=== PATIENT | female | born 1950 | race Caucasian/White ===

== ENCOUNTER 2019-04-20 17:10 | Inpatient (IN) | payer SELFPAY ==
[~2019-04-20] VITALS: Ht 165.1 cm; Wt 53.5 kg
--- NOTE | 2019-04-20 17:30 | NUR ---
ED Nurse Note: pt brought in by , c/c left hip pain s/p fall, pt reports she was walking and accidentally fell, denies dizziness/weakness prior to fall nor loc nor head injury. pt AA&ox4, gcs=15, skin warm and dry, resp even and unlabored on RA, -n/v/d, vss, will cont monitor. spouse member at the bedside.
--- NOTE | 2019-04-20 18:20 | NUR ---
ED Nurse Note: per ERMD order, merlos cath 16fr inserted, 10cc ns inserted, 30cc yellow urine returned. pt tolerated well, education done.
[2019-04-20 18:25] LABS: BASOPHILS % (AUTO) 1.1 % (0.0-2.0); HEMATOCRIT 35.9 % (37.0-47.0); HEMOGLOBIN 12.6 G/DL (12.0-16.0); LYMPHOCYTES % (AUTO) 21.2 % (20.0-45.0); MEAN CORPUSCULAR VOLUME 87 FL (80-99); MONOCYTES % (AUTO) 6.3 % (1.0-10.0); NEUTROPHILS % (AUTO) 63.4 % (45.0-75.0); PLATELET COUNT 157 K/UL (150-450); RED BLOOD COUNT 4.14 M/UL (4.20-5.40); RED CELL DISTRIBUTION WIDTH 10.3 % (11.6-14.8); WHITE BLOOD COUNT 5.3 K/UL (4.8-10.8)
--- NOTE | 2019-04-20 18:27 | NUR ---
ED Nurse Note: pt reports she has spasms on left hip area but refused pain medication at this time, NAYELI no notified.
[2019-04-20 18:28] LABS: ANION GAP 5 mmol/L (5-15); BLOOD UREA NITROGEN 17 mg/dL (7-18); CALCIUM 9.4 MG/DL (8.5-10.1); CARBON DIOXIDE 31 MMOL/L (21-32); CHLORIDE 105 MMOL/L (98-107); CREATININE 0.8 MG/DL (0.55-1.30); POTASSIUM 3.5 MMOL/L (3.5-5.1); SODIUM 141 MMOL/L (136-145)
[2019-04-20] MEDS ORDERED: Morphine Sulfate 4mg/ml Inj (IV USE ONLY) IVP ONE (18:30)
[2019-04-20 18:31] LABS: INR 0.9 (0.9-1.1)
[2019-04-20 18:33] VITALS: BP 93/57
[2019-04-20 18:33] LABS: ALANINE AMINOTRANSFERASE 26 U/L (12-78); ALBUMIN 3.5 G/DL (3.4-5.0); ALBUMIN/GLOBULIN RATIO 1.1 (1.0-2.7); ALKALINE PHOSPHATASE 84 U/L (46-116); ASPARTATE AMINO TRANSFERASE 25 U/L (15-37); BILIRUBIN,TOTAL 0.6 MG/DL (0.2-1.0)
--- NOTE | 2019-04-20 18:41 | NUR ---
ED Nurse Note: pt resting at this time, all safety precautions in place, extra blanket provided for comfort, pt advised to notify staff if needed assist. at the bedside.
--- NOTE | 2019-04-20 19:04 | NUR ---
HAND-OFF: Report given to RN Sushila and endorsed care, pt vss, resp even and unlabored on RA, no sx distress, iv intact and patent, merlos intact and draining. spouse member at the bedside.
--- NOTE | 2019-04-20 19:48 | Emergency Room Report ---
History of Present Illness General Chief Complaint: Lower Extremity Injury Source: Patient Present Illness HPI 69-year-old female presents ED for evaluation. Patient brought in by family stating that she had a mechanical trip and fall earlier today and landed on her left hip. States she is unable to bear weight. [place] hitting her head or LOC. Pain to left hip is throbbing, 6 out of 10, nonradiating. No other aggravating relieving factors. Denies any other associated symptoms Allergies: Coded Allergies: No Known Allergies (Unverified , 04/20/19) Patient History Past Medical History: none Past Surgical History: none Pertinent Family History: none Social History: Denies: smoking, alcohol use, drug use Now: No Immunizations: UTD Reviewed Nursing Documentation: PMH: Agreed; PSxH: Agreed Nursing Documentation-PMH Past Medical History: No Stated History Review of Systems All Other Systems: negative except mentioned in HPI Physical Exam Vital Signs Date Time Temp Pulse Resp B/P (MAP) Pulse Ox O2 Delivery O2 Flow Rate FiO2 04/20/19 17:16 97.9 63 18 92/55 (67) 99 Room Air Sp02 EP Interpretation: reviewed, normal General Appearance: no apparent distress, alert, GCS 15, non-toxic Head: normocephalic, atraumatic Eyes: bilateral eye normal inspection, bilateral eye PERRL ENT: hearing grossly normal, normal pharynx, no angioedema, normal voice Neck: full range of motion, supple/symm/no masses Respiratory: chest non-tender, lungs clear, normal breath sounds, speaking full sentences Cardiovascular #1: regular rate, rhythm, no edema Cardiovascular #2: 2+ carotid (R), 2+ carotid (L), 2+ radial (R), 2+ radial (L) , 2+ dorsalis pedis (R), 2+ dorsalis pedis (L) Gastrointestinal: normal bowel sounds, non tender, soft, non-distended, no guarding, no rebound Rectal: deferred Genitourinary: normal inspection, no CVA tenderness Musculoskeletal: back normal, gait/station normal, decreased range of motion - L hip Neurologic: alert, oriented x3, responsive, sensory intact, speech normal Psychiatric: judgement/insight normal, memory normal, mood/affect normal, no suicidal/homicidal ideation Reflexes: 3+ bicep (R), 3+ bicep (L), 3+ tricep (R), 3+ tricep (L), 3+ knee (R) , 3+ knee (L) Skin: normal color, no rash, warm/dry, well hydrated Lymphatic: no adenopathy Medical Decision Making Diagnostic Impression: Primary Impression: Femur neck fracture Qualified Codes: S72.002A - Fracture of unspecified part of neck of left femur , initial encounter for closed fracture ER Course Hospital Course 69-year-old female presents to ED with L hip pain s/p fall Differential diagnoses include: fracture, dislocation, contusion Clinical course Patient placed on stretcher. After initial history and physical I ordered xrays of L hip and pelvis. Declined pain medications initially X-rays show femoral neck/intertrochanteric fracture on the left. Findings with patient. Patient is to be admitted for operative fixation. IV pain meds but she again declined Case discussed with Dr. Kang who agreed to consult on this case. Case discussed with Dr. Padilla who agreed to accept the patient to his service for further care and support i. I feel this is a highly complex case requiring extensive working including EKG/Rhythm strip, Xray/CT/US, Blood/urine lab work, repeat exams while in ED, and administration of strong opiates/narcotics for pain control, admission to hospital or close patient follow up. Diagnosis -femur fx fracture Admitted to floor in serious condition Labs Test 04/20/19 18:00 White Blood Count 5.3 K/UL (4.8-10.8) Red Blood Count 4.14 M/UL (4.20-5.40) Hemoglobin 12.6 G/DL (12.0-16.0) Hematocrit 35.9 % (37.0-47.0) Mean Corpuscular Volume 87 FL (80-99) Mean Corpuscular Hemoglobin 30.4 PG (27.0-31.0) Mean Corpuscular Hemoglobin Concent 35.0 G/DL (32.0-36.0) Red Cell Distribution Width 10.3 % (11.6-14.8) Platelet Count 157 K/UL (150-450) Mean Platelet Volume 7.0 FL (6.5-10.1) Neutrophils (%) (Auto) 63.4 % (45.0-75.0) Lymphocytes (%) (Auto) 21.2 % (20.0-45.0) Monocytes (%) (Auto) 6.3 % (1.0-10.0) Eosinophils (%) (Auto) 8.0 % (0.0-3.0) Basophils (%) (Auto) 1.1 % (0.0-2.0) Prothrombin Time 10.0 SEC (9.30-11.50) Prothromb Time International Ratio 0.9 (0.9-1.1) Activated Partial Thromboplast Time 23 SEC (23-33) Sodium Level 141 MMOL/L (136-145) Potassium Level 3.5 MMOL/L (3.5-5.1) Chloride Level 105 MMOL/L (98-107) Carbon Dioxide Level 31 MMOL/L (21-32) Anion Gap 5 mmol/L (5-15) Blood Urea Nitrogen 17 mg/dL (7-18) Creatinine 0.8 MG/DL (0.55-1.30) Estimat Glomerular Filtration Rate > 60 mL/min (>60) Glucose Level 124 MG/DL (74-106) Calcium Level 9.4 MG/DL (8.5-10.1) Total Bilirubin 0.6 MG/DL (0.2-1.0) Aspartate Amino Transf (AST/SGOT) 25 U/L (15-37) Alanine Aminotransferase (ALT/SGPT) 26 U/L (12-78) Alkaline Phosphatase 84 U/L (46-116) Total Protein 6.8 G/DL (6.4-8.2) Albumin 3.5 G/DL (3.4-5.0) Globulin 3.3 g/dL Albumin/Globulin Ratio 1.1 (1.0-2.7) Other X-Ray Diagnostic Results Other X-Ray Diagnostic Results : X-Ray ordered: L hip + pelvis # of Views/Limited Vs Complete: 3 View Indication: Pain EP Interpretation: Yes Interpretation: no dislocation, no soft tissue swelling, other - femur neck fx Impression: Other - femur fx Electronically Signed by: Electronically signed by Nicola Huddleston MD Last Vital Signs Date Time Temp Pulse Resp B/P (MAP) Pulse Ox O2 Delivery O2 Flow Rate FiO2 04/20/19 18:34 62 18 Room Air 04/20/19 18:33 97.9 93/57 99 Status: improved Disposition: ADMITTED INPATIENT Condition: Serious Scripts No Active Prescriptions or Reported Meds Referrals: NOT CHOSEN IPA/,REFERRING (PCP) Nicola Huddleston MD Apr 20, 2019 19:48
--- NOTE | 2019-04-20 19:53 | NUR ---
ED Nurse Note: called to give report, per charge nurse statement, she will call back.
--- NOTE | 2019-04-20 20:20 | NUR ---
ED Nurse Note: report given to POOJA brown from [facility], will notify ermd regarding merlos order.
--- NOTE | 2019-04-20 20:30 | NUR ---
ED Nurse Note: pt sent to [facility] with noel payne, pt is aox4, on room air, skin intact, no signs of acute distress, some belongings have been sent home wiht , shoes, shirt, cellphone, one head piece, and glasses are bedside with pt.
--- NOTE | 2019-04-20 20:36 | NUR ---
ED Nurse Note: verified ERMD regarding merlos cath insertion order.
[2019-04-20 20:45] VITALS: BP 108/62
--- NOTE | 2019-04-20 20:45 | NUR ---
NURSE NOTES: Patient admitted from ER via [facility] for left hip fracture. Patient is aox4, at bedside. FC draining yellow urine via gravity, secured to thigh. Patient is oriented to room, unit and hospital policy, verbalized understanding. Belongings verified at bedside. Call light provided for patient. Will admit under Dr. Padilla, will contact Dr. Padilla.
[2019-04-20] MEDS ORDERED: ACIDOPHILUS1 EAC6 PO (20:53)
[2019-04-20] MEDS ORDERED: VITAMIN C500 M1 ORAL (20:53)
[2019-04-20] MEDS ORDERED: CALCIUM MAGNES1 EAC2 PO (20:53)
[2019-04-20] MEDS ORDERED: CO Q-10100 M1 PO (20:53)
[2019-04-20] MEDS ORDERED: MULTIVITAMINS1 EAC2 ORAL (20:53)
[2019-04-20] MEDS ORDERED: FISH OIL 1,2001 EAC2 PO (20:53)
[2019-04-20] MEDS ORDERED: VITAMIN E200 UNI2 PO (20:53)
[2019-04-20] MEDS ORDERED: HYDROcodone/Acetamin 5/325 tab ORAL PRN (21:45)
[2019-04-20] MEDS ORDERED: Morphine Sulfate 2mg/ml Inj(IV/IM USE ONLY) IVP PRN (21:45)
--- NOTE | 2019-04-20 21:55 | NUR ---
NURSE NOTES: Received admitting orders from Dr. Padilla. Contacted Dr. Leavitt regarding patient's plan for surgery. Per Dr. Barrow, will speak to patient tomorrow morning, and have patient NPO after breakfast for possible surgery in the afternoon tomorrow 04/21. Will carry out orders.
[2019-04-20 23:59] VITALS: BP 103/60
[2019-04-21] VITALS (12 sets, daily range): BP systolic 93–121; BP diastolic 49–66
[2019-04-21 06:39] LABS: BASOPHILS % (AUTO) 0.6 % (0.0-2.0); EOSINOPHILS % (AUTO) 0.2 % (0.0-3.0); HEMATOCRIT 34.8 % (37.0-47.0); HEMOGLOBIN 12.1 G/DL (12.0-16.0); LYMPHOCYTES % (AUTO) 15.9 % (20.0-45.0); MEAN CORPUSCULAR VOLUME 90 FL (80-99); MONOCYTES % (AUTO) 7.9 % (1.0-10.0); NEUTROPHILS % (AUTO) 75.4 % (45.0-75.0); PLATELET COUNT 165 K/UL (150-450); RED BLOOD COUNT 3.88 M/UL (4.20-5.40); RED CELL DISTRIBUTION WIDTH 10.8 % (11.6-14.8); WHITE BLOOD COUNT 5.6 K/UL (4.8-10.8)
[2019-04-21 07:01] LABS: ALANINE AMINOTRANSFERASE 25 U/L (12-78); ALBUMIN 3.4 G/DL (3.4-5.0); ALKALINE PHOSPHATASE 70 U/L (46-116); ANION GAP 7 mmol/L (5-15); ASPARTATE AMINO TRANSFERASE 23 U/L (15-37); BILIRUBIN,TOTAL 0.9 MG/DL (0.2-1.0); BLOOD UREA NITROGEN 15 mg/dL (7-18); CARBON DIOXIDE 29 MMOL/L (21-32); CHLORIDE 104 MMOL/L (98-107); CHOLESTEROL 141 MG/DL (< 200); CREATININE 0.6 MG/DL (0.55-1.30); HDL CHOLESTEROL 76 MG/DL (40-60); SODIUM 140 MMOL/L (136-145); TRIGLYCERIDES 24 MG/DL (30-150)
--- NOTE | 2019-04-21 07:20 | NUR ---
HAND-OFF: Report given to Isabel PATTON.
--- NOTE | 2019-04-21 07:27 | Consultation ---
Consult Note Consult Note Patient seen and evaluated. Left hip IT fx. Plan on ORIF this afternoon at 2:45. NPO. Consent was obtained. Full consult dictated. Krishan Barrow MD Apr 21, 2019 07:27
--- NOTE | 2019-04-21 07:30 | NUR ---
NURSE NOTES: WALKING ROUNDS DONE WITH OUTGOING RN. PATIENT AOX4. LEFT HIP SITE MILD SWELLING; JAIDEN PAIN. QUESTIONS ANSWERED NEEDS MET. DISCUSSED PLAN OF CARE FOR THE DAY. PATIENT SEEN BY DR. DE LOS SANTOS FOR SURGERY TODAY.
--- NOTE | 2019-04-21 07:40 | Pre-Procedure Note/Attestation ---
Pre-Procedure Note/Attestation Complete Prior to Procedure Planned Procedure: left Procedure Narrative: HIp Open reduction and internal fixation Indications for Procedure Pre-Operative Diagnosis: Left hip fracture Attestation I attest that I discussed the nature of the procedure; its benefits; risks and complications; and alternatives (and the risks and benefits of such alternatives ), prior to the procedure, with the patient (or the patient's legal senior human resources representative). I attest that, if there was a reasonable possibility of needing a blood transfusion, the patient (or the patient's legal senior human resources representative) was given the [facility] standardized written summary, pursuant to the [place] Blood Safety Act ([place] Health and Safety Code # 1645, as amended). I attest that I re-evaluated the patient just prior to the surgery and that there has been no change in the patient's H&P, except as documented below: Krishan Barrow MD Apr 21, 2019 07:39
[2019-04-21] MEDS ORDERED: D5NS 1,000 ML IV SCH (08:00)
--- NOTE | 2019-04-21 08:30 | Consultation ---
DATE OF CONSULTATION: 04/21/2019 ORTHOPEDIC CONSULTATION CONSULTING PHYSICIAN: Krishan Barrow M.D. REASON FOR CONSULTATION: Left-sided hip fracture. BRIEF HISTORY: The patient is a very pleasant 69-year-old female, who sustained a mechanical fall while she was walking with her son. Apparently, there was an uneven sidewalk and she tripped over that landing on her left hip. She had immediate onset of pain about the left hip. [facility] and an x-ray revealed a slight left IT fracture. Orthopedic consultation was obtained. Generally, the patient is able to walk without any assistive devices and she is very active. She lives in a home that is flat, there is no significant stairs. PAST MEDICAL HISTORY: Significant for none. PAST SURGICAL HISTORY: None. MEDICATIONS: She has not taken any. ALLERGIES: No known drug allergies. SOCIAL HISTORY: Denies smoking or alcohol use. REVIEW OF SYSTEMS: Reviewed and reconciled. There is no significant finding. PHYSICAL EXAMINATION: EXTREMITIES: Examination of the left hip reveals that the left leg is slightly externally rotated and shortened. Any motion of the left hip causes pain. There is no ulceration about the left hip. She is able to wiggle her toes. There is no abnormal finding except pain in the left hip and some swelling. DIAGNOSTIC DATA: X-ray of the left hip is reviewed. There is evidence of left hip intertrochanteric fracture. IMPRESSION: Left hip IT fracture. PLAN: We will go and proceed with left hip open reduction and internal fixation with a short gamma nail. Risks, benefits, and complications were fully discussed with her. The risks of infection, bleeding, neurovascular complication, possibility of nonunion, possibility of malunion, possibility of inability to walk without assistive device down the line was discussed with her, although our goal is to get her up and moving without any assistive devices and getting back to most of her activities. All questions were answered. We will see if we will go and try to expedite this for later this afternoon. She is NPO and stat 2D echo has been ordered. Krishan Barrow M.D. DR: /KENDRICK JOB#: [id number] CC: MARLEN
--- NOTE | 2019-04-21 08:30 | NUR ---
NURSE NOTES: PATIENT NOW NPO, SURGICAL AND BLOOD CONSENT SIGNED BY PATIENT. IVFS STARTED ORDERED. BED IN LOW AND LOCKED IN POSITION. CALL LIGHT WITHIN REACH.
[2019-04-21] MEDS ORDERED: Heparin 5000 units/ml inj SUBQ SCH (09:00)
--- NOTE | 2019-04-21 10:58 | History & Physical ---
History and Physical History & Physicial patient is seen and examined. Full Dictation completed. On 1055 AM Erin Padilla MD Apr 21, 2019 10:58
--- NOTE | 2019-04-21 10:59 | General Progress Note ---
Assessment/Plan Assessment/Plan: Full Dictation in progress A/P: 1- Left Hip Fx 2- unremarkable medical h.o Plan: EKG, Echo and CXR are ordered Remains NPO Subjective Allergies: Coded Allergies: GRAPE (Unverified Allergy, Severe, 04/20/19) Beef (Verified Allergy, Mild, intestinal upset, 04/20/19) MORGAN (Verified Allergy, Mild, intestinal upset, 04/20/19) POULTRY (Verified Allergy, Mild, intestinal upset, 04/20/19) Plums (Verified Allergy, Mild, intestinal upset, 04/20/19) Uncoded Allergies: concourd grape (Adverse Reaction, Severe, Anaphylaxis, 04/20/19) Objective Last 24 Hour Vital Signs Date Time Temp Pulse Resp B/P (MAP) Pulse Ox O2 Delivery O2 Flow Rate FiO2 04/21/19 08:00 98.4 85 17 110/60 (77) 99 04/21/19 04:00 96.8 85 18 101/56 (71) 98 04/20/19 23:59 96.6 77 18 103/60 (74) 98 04/20/19 21:00 Room Air 04/20/19 20:45 98.0 81 18 108/62 (77) 98 04/20/19 20:30 98.2 68 15 97/61 100 Room Air 04/20/19 18:34 62 18 Room Air 04/20/19 18:33 97.9 62 18 93/57 99 Room Air 04/20/19 17:16 97.9 63 18 92/55 (67) 99 Room Air Intake and Output 04/20/19 04/21/19 19:00 07:00 Intake Total 10 ml Output Total 700 ml Balance 10 ml -700 ml Intake IV Total 10 ml Output Urine Total 700 ml Laboratory Tests 04/20/19 18:00: White Blood Count 5.3, Red Blood Count 4.14L, Hemoglobin 12.6, Hematocrit 35.9L , Mean Corpuscular Volume 87, Mean Corpuscular Hemoglobin 30.4, Mean Corpuscular Hemoglobin Concent 35.0, Red Cell Distribution Width 10.3L, Platelet Count 157, Mean Platelet Volume 7.0, Neutrophils (%) (Auto) 63.4, Lymphocytes (%) (Auto) 21.2, Monocytes (%) (Auto) 6.3, Eosinophils (%) (Auto) 8.0H, Basophils (%) (Auto) 1.1, Prothrombin Time 10.0, Prothromb Time International Ratio 0.9, Activated Partial Thromboplast Time 23, Sodium Level 141, Potassium Level 3.5, Chloride Level 105, Carbon Dioxide Level 31, Anion Gap 5, Blood Urea Nitrogen 17, Creatinine 0.8, Estimat Glomerular Filtration Rate > 60, Glucose Level 124H, Calcium Level 9.4, Total Bilirubin 0.6, Aspartate Amino Transf (AST/SGOT) 25, Alanine Aminotransferase (ALT/SGPT) 26, Alkaline Phosphatase 84, Total Protein 6.8, Albumin 3.5, Globulin 3.3, Albumin/ Globulin Ratio 1.1 04/21/19 05:45: White Blood Count 5.6, Red Blood Count 3.88L, Hemoglobin 12.1, Hematocrit 34.8L , Mean Corpuscular Volume 90, Mean Corpuscular Hemoglobin 31.0, Mean Corpuscular Hemoglobin Concent 34.6, Red Cell Distribution Width 10.8L, Platelet Count 165, Mean Platelet Volume 7.4, Neutrophils (%) (Auto) 75.4H, Lymphocytes (%) (Auto) 15.9L, Monocytes (%) (Auto) 7.9, Eosinophils (%) (Auto) 0.2, Basophils (%) (Auto) 0.6, Sodium Level 140, Potassium Level 4.0, Chloride Level 104, Carbon Dioxide Level 29, Anion Gap 7, Blood Urea Nitrogen 15, Creatinine 0.6, Estimat Glomerular Filtration Rate > 60, Glucose Level 108H, Calcium Level 9.0, Total Bilirubin 0.9, Aspartate Amino Transf (AST/SGOT) 23, Alanine Aminotransferase (ALT/SGPT) 25, Alkaline Phosphatase 70, Total Protein 6.9, Albumin 3.4, Globulin 3.5, Albumin/Globulin Ratio 1.0, Hemoglobin A1c 5.4, Troponin I 0.000, Pro-B-Type Natriuretic Peptide 244H, Triglycerides Level 24L, Cholesterol Level 141, LDL Cholesterol 60, HDL Cholesterol 76H, Cholesterol/HDL Ratio 1.9L, Thyroid Stimulating Hormone (TSH) 0.454 Height (Feet): 5 Height (Inches): 5.00 Weight (Pounds): 118 Erin Padilla MD Apr 21, 2019 10:59
--- NOTE | 2019-04-21 11:19 | NUR ---
Social Work This Sw met with patient for a home safety evaluation (self pay/no insurance). This Sw met with patient who explains she plans to discharge to home with spouse, Jeronimo and son, (age 24), Jovanni to assist as needed. Patient anticipates P.T to see her here to provide training for ambulation prior to discharge. Patient explains her spouse has already purchase a walker (does not have any other needs or concerns at this time). Patient lives with spouse in a single level home (no steps). Patient provided a copy of her Advance Directive (placed in front of chart) with Spouse to assist with decision making as needed, with full code, full treatment. Patient remains alert/oriented x4 and making own decisions at this time.
--- NOTE | 2019-04-21 14:00 | NUR ---
NURSE NOTES: PATIENT READY FOR SURGERY. IDENTIFIED BY NAME. AND MR# WITH ANCILLARY WORKER AT BEDSIDE. FAMILY AT BEDSIDE. EARRINGS GIVEN TO FAMILY MEMBER AT BEDSIDE.
[2019-04-21] MEDS ORDERED: Bacitracin 50000 Units Vial ONE (14:28)
[2019-04-21] MEDS ORDERED: fentaNYL 100 mcg/2 mL IV ONE (14:37)
[2019-04-21] MEDS ORDERED: Midazolam 2mg/2ml Inj ONE (14:38)
[2019-04-21] MEDS ORDERED: Propofol 200mg/20ml IV ONE (14:41)
[2019-04-21] MEDS ORDERED: Lidocaine 1% MPF 10mg/ml 5ml ONE (14:41)
[2019-04-21] MEDS ORDERED: Bupivacaine 0.5% Inj 30 ml vial INJ ONE ×2 (14:50→14:52)
[2019-04-21] MEDS ORDERED: Duramorph PF 5mg/10ml amp ONE (14:52)
[2019-04-21] MEDS ORDERED: NS Irrig 1000ml ONE (15:00)
[2019-04-21] MEDS ORDERED: Sterile Water Irrig 1000ml IRRIG ONE (15:00)
[2019-04-21] MEDS ORDERED: LR 1000ml ONE (15:00)
[2019-04-21] MEDS ORDERED: Milk of Magnesia 30ml Ud ORAL PRN (15:30)
[2019-04-21] MEDS ORDERED: HYDROcodone/Acetamin 7.5/325 tab ORAL PRN (15:30)
[2019-04-21] MEDS ORDERED: HYDROcodone/Acetamin 5/325 tab ORAL PRN (15:30)
[2019-04-21] MEDS ORDERED: HYDROmorphone 1mg/ml Carpuject SUBQ PRN (15:30)
[2019-04-21] MEDS ORDERED: NS Irrig 1000ml IRRIG ONE (15:46)
[2019-04-21] MEDS ORDERED: LR 1000ml 1,000 ML IVLG SCH (15:52)
--- NOTE | 2019-04-21 15:52 | Anethesia Preoperative Eval ---
Anesthesia Pre-op PMH/ROS General Date of Evaluation: Apr 21, 2019 Time of Evaluation: 14:20 Anesthesiologist: Chanelle ASA Score: ASA 2 Mallampati Score Class I : Soft palate, uvula, fauces, pillars visible Class II: Soft palate, uvula, fauces visible Class III: Soft palate, base of uvula visible Class IV: Only hard plate visible Mallampati Classification: Class II Surgeon: Danial Diagnosis: L femoral Fx Surgical Procedure: ORIF of L femoral Fx Anesthesia History: none Family History: no anesthesia problems Allergies: Coded Allergies: GRAPE (Unverified Allergy, Severe, 04/20/19) Beef (Verified Allergy, Mild, intestinal upset, 04/20/19) MORGAN (Verified Allergy, Mild, intestinal upset, 04/20/19) POULTRY (Verified Allergy, Mild, intestinal upset, 04/20/19) Plums (Verified Allergy, Mild, intestinal upset, 04/20/19) Uncoded Allergies: concourd grape (Adverse Reaction, Severe, Anaphylaxis, 04/20/19) Medications: see eMAR Patient NPO?: Yes NPO Date: Apr 21, 2019 NPO Time: 0800 Past Medical History Cardiovascular: Denies: HTN, CAD, [place], valve dz, arrhythmia, other Pulmonary: Denies: asthma, COPD, KIRA, other Gastrointestinal/Genitourinary: Reports: GERD - mild; Denies: CRI, ESRD, other Neurologic/Psychiatric: Denies: dementia, CVA, depression/anxiety, TIA, other Endocrine: Reports: hypothyroidism; Denies: DM, steroids, other HEENT: Denies: cataract (L), cataract (R), glaucoma, [place] (L), [place] (R), other Hematology/Immune: Denies: anemia, DVT, bleeding disorder, other Musculoskeletal/Integumentary: Reports: OA; Denies: RA, DJD, DDD, edema, other PMH Narrative: as above PSxH Narrative: Anesthesia Pre-op Phys. Exam Physician Exam Last Vital Signs Date Time Temp Pulse Resp B/P (MAP) Pulse Ox O2 Delivery O2 Flow Rate FiO2 04/21/19 12:00 97.9 79 19 116/66 (83) 98 04/21/19 09:00 Room Air Constitutional: NAD Neurologic: CN 2-12 intact Cardiovascular: RRR, no M/R/G Respiratory: CTA Gastrointestinal: S/NT/ND Airway Exam Mallampati Score: Class II MO: full Neck: flexible ROM: limited Teeth: intact Dentures: no upper, no lower Anesthesia Pre-op A/P Labs Hematology Test 04/20/19 18:00 04/21/19 05:45 White Blood Count 5.3 K/UL (4.8-10.8) 5.6 K/UL (4.8-10.8) Red Blood Count 4.14 M/UL (4.20-5.40) L 3.88 M/UL (4.20-5.40) L Hemoglobin 12.6 G/DL (12.0-16.0) 12.1 G/DL (12.0-16.0) Hematocrit 35.9 % (37.0-47.0) L 34.8 % (37.0-47.0) L Mean Corpuscular Volume 87 FL (80-99) 90 FL (80-99) Mean Corpuscular Hemoglobin 30.4 PG (27.0-31.0) 31.0 PG (27.0-31.0) Mean Corpuscular Hemoglobin Concent 35.0 G/DL (32.0-36.0) 34.6 G/DL (32.0-36.0) Red Cell Distribution Width 10.3 % (11.6-14.8) L 10.8 % (11.6-14.8) L Platelet Count 157 K/UL (150-450) 165 K/UL (150-450) Mean Platelet Volume 7.0 FL (6.5-10.1) 7.4 FL (6.5-10.1) Neutrophils (%) (Auto) 63.4 % (45.0-75.0) 75.4 % (45.0-75.0) H Lymphocytes (%) (Auto) 21.2 % (20.0-45.0) 15.9 % (20.0-45.0) L Monocytes (%) (Auto) 6.3 % (1.0-10.0) 7.9 % (1.0-10.0) Eosinophils (%) (Auto) 8.0 % (0.0-3.0) H 0.2 % (0.0-3.0) Basophils (%) (Auto) 1.1 % (0.0-2.0) 0.6 % (0.0-2.0) Coagulation Test 04/20/19 18:00 Prothrombin Time 10.0 SEC (9.30-11.50) Prothromb Time International Ratio 0.9 (0.9-1.1) Activated Partial Thromboplast Time 23 SEC (23-33) Chemistry Test 04/20/19 18:00 04/21/19 05:45 Sodium Level 141 MMOL/L (136-145) 140 MMOL/L (136-145) Potassium Level 3.5 MMOL/L (3.5-5.1) 4.0 MMOL/L (3.5-5.1) Chloride Level 105 MMOL/L (98-107) 104 MMOL/L (98-107) Carbon Dioxide Level 31 MMOL/L (21-32) 29 MMOL/L (21-32) Anion Gap 5 mmol/L (5-15) 7 mmol/L (5-15) Blood Urea Nitrogen 17 mg/dL (7-18) 15 mg/dL (7-18) Creatinine 0.8 MG/DL (0.55-1.30) 0.6 MG/DL (0.55-1.30) Estimat Glomerular Filtration Rate > 60 mL/min (>60) > 60 mL/min (>60) Glucose Level 124 MG/DL (74-106) H 108 MG/DL (74-106) H Calcium Level 9.4 MG/DL (8.5-10.1) 9.0 MG/DL (8.5-10.1) Total Bilirubin 0.6 MG/DL (0.2-1.0) 0.9 MG/DL (0.2-1.0) Aspartate Amino Transf (AST/SGOT) 25 U/L (15-37) 23 U/L (15-37) Alanine Aminotransferase (ALT/SGPT) 26 U/L (12-78) 25 U/L (12-78) Alkaline Phosphatase 84 U/L (46-116) 70 U/L (46-116) Total Protein 6.8 G/DL (6.4-8.2) 6.9 G/DL (6.4-8.2) Albumin 3.5 G/DL (3.4-5.0) 3.4 G/DL (3.4-5.0) Globulin 3.3 g/dL 3.5 g/dL Albumin/Globulin Ratio 1.1 (1.0-2.7) 1.0 (1.0-2.7) Hemoglobin A1c 5.4 % (4.3-6.0) Troponin I 0.000 ng/mL (0.000-0.056) Pro-B-Type Natriuretic Peptide 244 pg/mL (0-125) H Triglycerides Level 24 MG/DL (30-150) L Cholesterol Level 141 MG/DL (< 200) LDL Cholesterol 60 mg/dL (<100) HDL Cholesterol 76 MG/DL (40-60) H Cholesterol/HDL Ratio 1.9 (3.3-4.4) L Thyroid Stimulating Hormone (TSH) 0.454 uiU/mL (0.358-3.740) Studies Pre-op Studies: EKG - NSR Risk Assessment & Plan Assessment: ASA 2 Plan: SAB vs GA Status Change Before Surgery: No Pre-Antibiotics Drug: Ancef 1gr. Given Within 1 Hr of Incision: Yes Time Given: 15:20 Tenzin Roca MD Apr 21, 2019 15:52
[2019-04-21] MEDS ORDERED: DiphenhydrAMINE 50mg/ml Inj IVP PRN (16:00)
[2019-04-21] MEDS ORDERED: fentaNYL 100 mcg/2 mL IV PRN (16:00)
[2019-04-21] MEDS ORDERED: Ketorolac 30mg Inj IV PRN (16:00)
--- NOTE | 2019-04-21 16:11 | NUR ---
CASE MANAGEMENT:REVIEW 69 YR OLD FEMALE PRESENTED TO ER CC: TRIP AND FALL SI: LEFT HIP FRACTURE 97.9 63 18 92/55 99% ON RA GLUCOSE+124 IS: IV MORPHINE XRAY HIP : TO MED/SURG 3 [facility] 04/21/19 SI: LT HIP FRACTURE 97.9 79 19 116/66 98% ON RA IS: TO SURGERY FOR: LT HIP ORIF W/GAMMA NAIL IV ANCEF Q8HRS : MED/SURG STATUS 3 DCP: RETURN HOME
--- NOTE | 2019-04-21 16:13 | Brief Operative Note ---
Immediate Post Operative Note Operative Note Pre-op Diagnosis: Left hip fracture Procedure: L hip ORIF with short gamma Nail Post-op Diagnosis: same Post-op Diagnosis: same as pre-op Surgeon: nestor Video Game Engineer: Getachew Anesthesiologist: Lukas Anesthesia: general Specimen: none Complications: none Condition: stable Fluids: 800 Estimated Blood Loss: volume - 50 cc Drains: none Implant(s) used?: Yes - solomon gamma nail Krishan Barrow MD Apr 21, 2019 16:13
--- NOTE | 2019-04-21 16:15 | NUR ---
DISCHARGE PLAN ONLY DISCHARGE OPTION IS FOR PATIENT TO RETURN HOME SINCE SHE IS NON FUNDED WE ARE UNABLE TO REFER HER TO A SNF, ARU OR HOME HEALTH
--- NOTE | 2019-04-21 16:36 | Immediate Post-Op Evaluation ---
Immediate Post-Op Evalulation Immediate Post-Op Evalulation Procedure: ORIF of L femoral Fx Date of Evaluation: Apr 21, 2019 Time of Evaluation: 16:35 IV Fluids: 1000 Blood Products: none Estimated Blood Loss: 100 Urinary Output: 200 Blood Pressure Systolic: 104 Blood Pressure Diastolic: 56 Pulse Rate: 68 Respiratory Rate: 20 O2 Sat by Pulse Oximetry: 98 Temperature (Fahrenheit): 97.6 Pain Score (1-10): 2 Nausea: No Vomiting: No Complications none Patient Status: reacts, patent, none Hydration Status: adequate Tnezin Roca MD Apr 21, 2019 16:36
--- NOTE | 2019-04-21 17:00 | History and Physical Report ---
DATE OF ADMISSION: 04/20/2019 SOURCE OF INFORMATION: Patient and EMR. HISTORY OF PRESENT ILLNESS: The patient is a pleasant 69-year-old white female. She is status post mechanical fall and trauma and fracture of the left hip. The patient denies having any other medical problems. At the time of evaluation, she is denying any chest pain or shortness of breath. PAST MEDICAL HISTORY: Unremarkable. PAST SURGICAL HISTORY: Denies. MEDICATIONS: Current hospital medications including, but not limited to, multivitamin and fish oil. ALLERGIES: NKDA. FAMILY HISTORY: Reviewed and noncontributory. SOCIAL HISTORY: The patient has 1 son, is living with her . Denies history of illicit drug abuse, smoking, or alcohol abuse. REVIEW OF SYSTEMS: All 12-elements of review of systems reviewed. Pertinent and positives are reviewed as above. PHYSICAL EXAMINATION: VITAL SIGNS: Blood pressure is 90/60, temperature 98.2, and pulse ox 99 percent on room air. HEENT: Atraumatic and normocephalic. CHEST: Clear to auscultation. HEART: S1 and S2. Regular rate and rhythm. ABDOMEN: Soft. No organomegaly. MUSCULOSKELETAL: No gross focal motor deficits. Positive for decreased range of motion in the left hip secondary to the known fracture. IMAGING: The official report is pending. LABORATORY DATA: Labs dated 04/20/2019 shows WBC 5.3, hemoglobin 12.6, and platelet of 157,000. Sodium 142 and potassium 3.5. Liver function tests within normal limits. Glucose of 120. ASSESSMENT AND PLAN: 1. Mechanical fall and fracture of the left hip. 2. Abnormal blood sugar. No evidence of diabetes. 3. GI and DVT prophylaxis. PLAN OF CARE: I will order the EKG, echo, and chest x-ray. Case has already been reviewed and discussed with the surgeon, Dr. Barrow. COMMENTS: The time of this dictation does not reflect the actual time of encounter. Erin Padilla M.D. DR: KERRY JOB#: [id number] CC:
--- NOTE | 2019-04-21 17:45 | NUR ---
NURSE NOTES: PATIENT RETURNED FROM SURGERY VIA BED. AOX4. DENIES PAIN TO SURGICAL SITE. DRSG C/D/I. BEDSIDE REPORT RECEIVED. DISCUSSED PLAN OF CARE FOR THE REMAINDER OF THE SHIFT. VERBALIZED UNDERSTANDING. FAMILY AT BEDSIDE. BED IN LOW AND LOCKED POSITION. CALL LIGHT WITHIN REACH.
[2019-04-21] MEDS: Docusate 100mg cap ORAL SCH (18:00)
[2019-04-21] MEDS: Aspirin Baby 81mg ORAL SCH (18:53)
[2019-04-21] MEDS ORDERED: D5 1/2NS w/KCl 20mEq 1,000 ML IV SCH (19:00)
--- NOTE | 2019-04-21 19:26 | NUR ---
HAND-OFF: Report given to DENISE Lazo RN.
--- NOTE | 2019-04-21 19:30 | NUR ---
NURSE NOTES: Report taken from POOJA Hall. Patient is awake and in bed, very pleasant, A&Ox4. No signs of distress on room air, will assess and remove is sats are ok. No complaints of pain, spinal block is still affecting patient. She states that she is beginning to feel minor sensations but nothing through distal LE at the moment. Surigcal site c/d/i. IV c/d/i and running D51/2NS+20KCl at 75mls/hr per order. No abductor pillow necessary for MD order. Skin is intact. Bed in lowest position, call light within reach.
--- NOTE | 2019-04-21 19:59 | Cardiology Progress Note ---
Assessment/Plan Status Narrative The patient is seen and examined, full consult note will be dictated shortly. Objective Last 24 Hour Vital Signs Date Time Temp Pulse Resp B/P (MAP) Pulse Ox O2 Delivery O2 Flow Rate FiO2 04/21/19 17:45 98.0 66 12 93/61 (72) 100 04/21/19 17:30 97.9 67 17 115/52 100 Nasal Cannula 3 04/21/19 17:15 64 15 115/49 100 Nasal Cannula 3 04/21/19 17:00 66 19 110/50 100 Nasal Cannula 3 04/21/19 16:50 65 14 121/52 100 Nasal Cannula 3 04/21/19 16:42 63 14 107/53 100 Simple Mask 6 04/21/19 16:37 56 16 98/51 100 Simple Mask 6 04/21/19 16:36 68 20 98 04/21/19 16:32 97.0 72 20 104/65 100 Simple Mask 6 04/21/19 12:00 97.9 79 19 116/66 (83) 98 04/21/19 09:00 Room Air 04/21/19 08:00 98.4 85 17 110/60 (77) 99 04/21/19 04:00 96.8 85 18 101/56 (71) 98 04/20/19 23:59 96.6 77 18 103/60 (74) 98 04/20/19 21:00 Room Air 04/20/19 20:45 98.0 81 18 108/62 (77) 98 04/20/19 20:30 98.2 68 15 97/61 100 Room Air Intake and Output 04/20/19 04/21/19 19:00 07:00 Intake Total 10 ml Output Total 700 ml Balance 10 ml -700 ml Intake IV Total 10 ml Output Urine Total 700 ml Laboratory Tests Test 04/21/19 05:45 White Blood Count 5.6 K/UL (4.8-10.8) Red Blood Count 3.88 M/UL (4.20-5.40) L Hemoglobin 12.1 G/DL (12.0-16.0) Hematocrit 34.8 % (37.0-47.0) L Mean Corpuscular Volume 90 FL (80-99) Mean Corpuscular Hemoglobin 31.0 PG (27.0-31.0) Mean Corpuscular Hemoglobin Concent 34.6 G/DL (32.0-36.0) Red Cell Distribution Width 10.8 % (11.6-14.8) L Platelet Count 165 K/UL (150-450) Mean Platelet Volume 7.4 FL (6.5-10.1) Neutrophils (%) (Auto) 75.4 % (45.0-75.0) H Lymphocytes (%) (Auto) 15.9 % (20.0-45.0) L Monocytes (%) (Auto) 7.9 % (1.0-10.0) Eosinophils (%) (Auto) 0.2 % (0.0-3.0) Basophils (%) (Auto) 0.6 % (0.0-2.0) Sodium Level 140 MMOL/L (136-145) Potassium Level 4.0 MMOL/L (3.5-5.1) Chloride Level 104 MMOL/L (98-107) Carbon Dioxide Level 29 MMOL/L (21-32) Anion Gap 7 mmol/L (5-15) Blood Urea Nitrogen 15 mg/dL (7-18) Creatinine 0.6 MG/DL (0.55-1.30) Estimat Glomerular Filtration Rate > 60 mL/min (>60) Glucose Level 108 MG/DL (74-106) H Hemoglobin A1c 5.4 % (4.3-6.0) Calcium Level 9.0 MG/DL (8.5-10.1) Total Bilirubin 0.9 MG/DL (0.2-1.0) Aspartate Amino Transf (AST/SGOT) 23 U/L (15-37) Alanine Aminotransferase (ALT/SGPT) 25 U/L (12-78) Alkaline Phosphatase 70 U/L (46-116) Troponin I 0.000 ng/mL (0.000-0.056) Pro-B-Type Natriuretic Peptide 244 pg/mL (0-125) H Total Protein 6.9 G/DL (6.4-8.2) Albumin 3.4 G/DL (3.4-5.0) Globulin 3.5 g/dL Albumin/Globulin Ratio 1.0 (1.0-2.7) Triglycerides Level 24 MG/DL (30-150) L Cholesterol Level 141 MG/DL (< 200) LDL Cholesterol 60 mg/dL (<100) HDL Cholesterol 76 MG/DL (40-60) H Cholesterol/HDL Ratio 1.9 (3.3-4.4) L Thyroid Stimulating Hormone (TSH) 0.454 uiU/mL (0.358-3.740) Hima Hollis MD Apr 21, 2019 19:59
[2019-04-21] MEDS: ceFAZolin sod 2 GM in D5W 110 ML IV SCH (23:11)
[2019-04-22] VITALS: BP 97/60
--- NOTE | 2019-04-22 02:15 | Operative Note - Dictated ---
DATE OF OPERATION: 04/21/2019 PREOPERATIVE DIAGNOSIS: Left hip displaced intertrochanteric fracture. POSTOPERATIVE DIAGNOSIS: Left hip displaced intertrochanteric fracture. PROCEDURE: Left hip open reduction and internal fixation with a short 125-degree angle gamma nail with a 95 mm lag screw. SURGEON: Krishan Barrow M.D. INDUSTRIAL SOCIOLOGIST: None. ANESTHESIOLOGIST: Tenzin Roca M.D. ANESTHESIA: General LMA anesthesia. ESTIMATED BLOOD LOSS: Less than 50 mL. COMPLICATIONS: None. BRIEF HISTORY: The patient is a pleasant 69-year-old female, who sustained a mechanical fall and broke her hip. She sustained a left hip intertrochanteric fracture. She was admitted to the hospital. After full discussion of the risks and benefits of the surgery and complications associated with it including infection, bleeding, neurovascular complication, possibility of malunion, possibility of nonunion, and possibility of other complications that may arise down the line, she opted for surgical treatment as described above. OPERATIVE PROCEDURE: The patient was brought to the operating table and was placed supine. Spinal anesthesia was initially induced and subsequently general anesthesia was induced. The patient was placed on a fracture table and all pressure points were well padded. A central post was placed. The left leg was placed in traction and right leg was placed in a well-leg andres. All pressure points were well padded. The left leg was then placed in traction and internally rotated. Image intensifier was brought in and the fracture was reduced anatomically on AP and lateral. At this point, the left leg was prepped and draped in usual sterile fashion. A time-out was performed and preop antibiotics were given prior to incision. An incision was made on the proximal aspect of the hip, 2 cm proximal to the greater trochanter. The incision was taken through subcutaneous tissue and through the gluteal fascia. At this point, the greater trochanter was palpated and under image intensifier, a guidepin was placed through the greater trochanter into the metaphyseal region across the fracture site. Once this was completed, image intensifier was checked on AP and lateral and appeared to be perfect. At this point, the proximal reaming was performed to open the canal. Subsequently, the guidewire was removed and a short 125-degree gamma nail was then placed in without any complication. At this point, using a guide and after making an incision in the skin, a guidewire was placed through the lateral cortex of the femur through the nail into the neck and into the head. The placement of the screw was slightly inferiorly on AP and central on lateral. Once this was completed, measurements were made and 95 mm appeared to be the right size. Therefore, at this point, a step drill was used to drill up 95 mm and subsequently a 95 mm lag screw was placed in without any complication. This abutted the lateral cortex very well. This was about 2 to 3 mm from the subchondral bone based on images on AP and lateral. Once this was completed, the compression screw was tightened, but backed off by about half a turn to allow for compression. At this point, the guidewire was removed and the external guide arm was removed. Wounds were thoroughly irrigated. Final x-rays were obtained on AP and lateral and the fracture was reduced anatomically and the hardware was in excellent position both on AP and lateral. At this point, wounds were thoroughly irrigated using copious amount of fluid. The gluteal fascia was closed using #1 Vicryl suture. Subcutaneous tissue was closed using 2-0 Vicryl suture. Skin was closed using 3-0 Monocryl suture. Steri-Strips were applied and sterile dressing was applied. The patient was taken to recovery room in stable condition. All lap counts and instrument counts were correct. Krishan Barrow M.D. DR: SHANIKA JOB#: [id number] CC:
--- NOTE | 2019-04-22 02:45 | Consultation ---
DATE OF CONSULTATION: 04/21/2019 CARDIOLOGY CONSULTATION CONSULTING PHYSICIAN: Hima Hollis M.D. REFERRING PHYSICIAN: Erin Padilla M.D. REASON FOR CONSULTATION: Preoperative cardiac assessment for noncardiac surgery. HISTORY OF PRESENT ILLNESS: The patient is a very unfortunate 69-year-old female, with no past medical history, who is brought in by family members to the emergency department of [facility] after she sustained a mechanical trip and fall on 04/20/2019 and landed on her left hip. She was unable to bear weight. There was no head trauma or loss of consciousness prior to this event. Her pain was under control 6/10 intensity, nonradiating. At the time of arrival to this facility, the patient did not have any chest pain or shortness of breath. Her blood pressure was 92/55 mmHg and heart rate of 63. Left hip and pelvis x-ray revealed left femoral neck fracture. The patient was admitted to medical surgical unit for further evaluation and management. Cardiology consultation was made for preoperative cardiac assessment. PAST MEDICAL HISTORY: None. PAST SURGICAL HISTORY: None. MEDICATIONS: List of medications in the outpatient setting includes ascorbic acid 500 mg p.o. daily, calcium magnesium caplet 1 capsule once daily, fish oil 1200 mg 1 tablet p.o. daily, acidophilus 1 capsule p.o. daily multivitamin 1 tablet p.o. daily, CoQ10 100 mg p.o. daily, and vitamin E 200 units p.o. daily. FAMILY HISTORY: No premature coronary artery disease in the first degree relatives. SOCIAL HISTORY: Denies any tobacco, alcohol, or illicit drug use. REVIEW OF SYSTEMS: HEENT: Denies any headache, diplopia, or blurred vision. CONSTITUTIONAL: Denies any fever, chills, night sweats, or weight loss. CARDIOVASCULAR: Denies any chest pain, shortness of breath, PND, orthopnea, leg swelling, or syncope. PULMONARY: Denies any cough, hemoptysis, or wheezing. GASTROINTESTINAL: Denies any nausea, vomiting, diarrhea, constipation, abdominal pain, or GI bleed. GENITOURINARY: Denies any hematuria, dysuria, or incontinence. NEUROLOGY: Denies any motor dysfunction, sensory deficit, or altered speech. MUSCULOSKELETAL: Pain in the left hip and inability to walk. PHYSICAL EXAMINATION: VITAL SIGNS: Blood pressure at the time of arrival to the hospital was 92/55 mmHg, pulse of 63, respirations of 18, temperature 97.9 degrees Fahrenheit, and O2 saturation 99% on room air. GENERAL: A very pleasant 69-year-old female, in no apparent respiratory distress. Alert, awake, and oriented x4. HEENT: Atraumatic and normocephalic. Anicteric. Pupils are equal, round, and reactive to light and accommodation. Extraocular muscles intact. NECK: JVP less than 5 cm. No carotid bruit. Carotid upstroke is 2+ bilaterally. CARDIOVASCULAR: Normal S1, S2. Regular rate and rhythm. No murmurs, gallops, or rubs. PMI is at fourth intercostal space at the midclavicular line. LUNGS: Clear to auscultation bilaterally. ABDOMEN: Soft, nontender, and nondistended. No hepatosplenomegaly. Positive bowel sounds. EXTREMITIES: Decreased range of motion of left hip. Abnormal gait. No edema, clubbing, or cyanosis. LABORATORY FINDINGS: WBC was 5.3, hemoglobin of 12.6, hematocrit of 35.9%, and platelet count is 157,000. INR was 0.9. Sodium was 141, potassium is 3.5, chloride 105, bicarbonate 31, BUN of 17, creatinine of 0.8, and glucose is 124. Calcium is 9.4 and albumin of 3.5. ASSESSMENT AND PLAN: The patient is a very unfortunate 69-year-old female, who is seen in Cardiology consultation. Prior to this event, the patient was capable of tolerating activities with with no limitations. She does not have any history of coronary artery disease, congestive heart failure, or cardiac arrhythmias. She is cleared for left hip open reduction and internal fixation with a risk of coronary artery events perioperatively estimated to be less than 1%. We will obtain 12-lead electrocardiogram in the postoperative period. I would like to thank, Dr. Padilla, for allowing me to participate in the care of this patient. Hima Hollis M.D. DR: CRISTÓBAL JOB#: [id number] CC:
[2019-04-22 04:00] VITALS: BP 101/56
[2019-04-22] MEDS: ceFAZolin sod 2 GM in D5W 110 ML IV SCH (06:39)
[2019-04-22 06:52] LABS: ANION GAP 5 mmol/L (5-15); BLOOD UREA NITROGEN 9 mg/dL (7-18); CALCIUM 8.5 MG/DL (8.5-10.1); CARBON DIOXIDE 29 MMOL/L (21-32); CHLORIDE 103 MMOL/L (98-107); CREATININE 0.7 MG/DL (0.55-1.30); SODIUM 137 MMOL/L (136-145)
--- NOTE | 2019-04-22 07:22 | NUR ---
HAND-OFF: Report given to POOJA Hlal and POOJA Aguillon. Patient is awake and alert, VS stable.
--- NOTE | 2019-04-22 07:30 | NUR ---
NURSE NOTES: WALKING ROUNDS DONE WITH OUTGOING RN. PATIENT AWAKE AND ALERT. LEFT HIP SURGICAL SITE ASSESSED; C/D/I. DENIES PAIN.QUESTIONS ANSWERED; NEEDS MET. DISCUSSED PLAN OF CARE FOR THE DAY. VERBALIZED UNDERSTANDING.BED IN LOW AND LOCKED POSITION.
[2019-04-22 08:00] VITALS: BP 113/60
--- NOTE | 2019-04-22 08:05 | Orthopedic Progress Note ---
Orthopedic - Progress Note Subjective Symptoms: improved Objective Laboratory Tests Test 04/22/19 05:35 Sodium Level 137 MMOL/L (136-145) Potassium Level 4.0 MMOL/L (3.5-5.1) Chloride Level 103 MMOL/L (98-107) Carbon Dioxide Level 29 MMOL/L (21-32) Anion Gap 5 mmol/L (5-15) Blood Urea Nitrogen 9 mg/dL (7-18) Creatinine 0.7 MG/DL (0.55-1.30) Estimat Glomerular Filtration Rate > 60 mL/min (>60) Glucose Level 136 MG/DL (74-106) H Calcium Level 8.5 MG/DL (8.5-10.1) Last 24 Hour Vital Signs Date Time Temp Pulse Resp B/P (MAP) Pulse Ox O2 Delivery O2 Flow Rate FiO2 04/22/19 04:00 98.4 71 15 101/56 (71) 96 04/22/19 00:00 98.5 70 15 97/60 (72) 97 04/21/19 21:00 Room Air 04/21/19 20:00 97.9 67 14 103/61 (75) 99 04/21/19 17:45 98.0 66 12 93/61 (72) 100 04/21/19 17:30 97.9 67 17 115/52 100 Nasal Cannula 3 04/21/19 17:15 64 15 115/49 100 Nasal Cannula 3 04/21/19 17:00 66 19 110/50 100 Nasal Cannula 3 04/21/19 16:50 65 14 121/52 100 Nasal Cannula 3 04/21/19 16:42 63 14 107/53 100 Simple Mask 6 04/21/19 16:37 56 16 98/51 100 Simple Mask 6 04/21/19 16:36 68 20 98 04/21/19 16:32 97.0 72 20 104/65 100 Simple Mask 6 04/21/19 12:00 97.9 79 19 116/66 (83) 98 04/21/19 09:00 Room Air Intake and Output 04/21/19 04/22/19 19:00 07:00 Intake Total 1500 ml 550 ml Output Total 1000 ml 700 ml Balance 500 ml -150 ml Intake Oral 550 ml IV Total 1500 ml Output Urine Total 900 ml 700 ml Estimated Blood Loss 100 ml Laboratory Tests Test 04/22/19 05:35 Sodium Level 137 MMOL/L (136-145) Potassium Level 4.0 MMOL/L (3.5-5.1) Chloride Level 103 MMOL/L (98-107) Carbon Dioxide Level 29 MMOL/L (21-32) Anion Gap 5 mmol/L (5-15) Blood Urea Nitrogen 9 mg/dL (7-18) Creatinine 0.7 MG/DL (0.55-1.30) Estimat Glomerular Filtration Rate > 60 mL/min (>60) Glucose Level 136 MG/DL (74-106) H Calcium Level 8.5 MG/DL (8.5-10.1) Wound: clean, dry, intact Drains: none Neuro Status: normal Vascular Status: normal Additional Comments Xray pelvis: fracture reduced and gamma nail in excellent position Assessment Post-op Diagnosis POD 1 Procedure Performed left hip ORIF Plan Plan: PT, discharge to home - d/c in AM. dressing change prior to d/c. f/u Dr Barrow next week Carie Grover Apr 22, 2019 08:05
[2019-04-22 08:34] LABS: BASOPHILS % (AUTO) 0.6 % (0.0-2.0); EOSINOPHILS % (AUTO) 2.7 % (0.0-3.0); HEMATOCRIT 31.9 % (37.0-47.0); HEMOGLOBIN 10.9 G/DL (12.0-16.0); LYMPHOCYTES % (AUTO) 17.6 % (20.0-45.0); MEAN CORPUSCULAR VOLUME 90 FL (80-99); MONOCYTES % (AUTO) 8.8 % (1.0-10.0); NEUTROPHILS % (AUTO) 70.3 % (45.0-75.0); PLATELET COUNT 141 K/UL (150-450); RED BLOOD COUNT 3.53 M/UL (4.20-5.40); RED CELL DISTRIBUTION WIDTH 10.9 % (11.6-14.8); WHITE BLOOD COUNT 5.2 K/UL (4.8-10.8)
[2019-04-22] MEDS: Docusate 100mg cap ORAL SCH ×3 (09:00→18:00)
[2019-04-22] MEDS: celeBREX 200mg Cap **SURGERY PATIENTS ONLY ORAL SCH (09:01)
[2019-04-22] MEDS: Aspirin Baby 81mg ORAL SCH ×2 (09:01→18:31)
--- NOTE | 2019-04-22 11:22 | NUR ---
P.T NOTE: LATE ENTRY 0945 P.T EVALUATION COMPLETED AND TREATMENT INITIATED. PLEASE REFER TO P.T EVALUATION FOR CURRENT FUNCTIONAL STATUS. PATIENT IS ALERT, PLEASANT AND COOPERATIVE. PATIENT IS LIMITED BY INCREASED PAIN OF THE L HIP AGGRAVATED BY MOVEMENT INITIATION AND CERTAIN POSITION, WEAKNESS OF THE L HIP MUSCLE GROUP AND NAUSEA WHICH OCCURRED DURING GAIT ACTIVITIES. PATIENT CURRENTLY MIN A X 1 FOR BED MOBILITY, TRANSFERS AND GAIT/AMBULATION ACTIVITIES USING THE FWW. VITALS WERE STABLE POST P.T EVAL/TX. PATIENT WOULD BENEFIT FROM SKILLED P.T SERVICES TO INCREASE HER STRENGTH, ENDURANCE AND BALANCE TO IMPROVE FUNCTIONAL MOBILITY INDEPENDENCE AND SAFETY. WOULD BENEFIT FROM EITHER SNF FOR SHORTER REHAB OR HOME WITH FAMILY ASSIST AND HOME P.T. DME TO INCLUDE FWW ( ALREADY BOUGHT FOR PATIENT ) AND RAISED TOILET SEAT AT [facility]. THANK YOU FOR THIS REFERRAL.
[2019-04-22 11:42] VITALS: BP 109/60
--- NOTE | 2019-04-22 13:46 | 48 Hour Post Anesthesia Eval ---
Post Anesthesia Evaluation Procedure: ORIF of L femoral Fx Date of Evaluation: Apr 22, 2019 Time of Evaluation: 13:44 Blood Pressure Systolic: 114 0: 69 Pulse Rate: 72 Respiratory Rate: 20 Temperature (Fahrenheit): 97.5 O2 Sat by Pulse Oximetry: 98 Airway: patent Nausea: No Vomiting: No Pain Intensity: 2 Hydration Status: adequate Cardiopulmonary Status: stable Mental Status/LOC: patient returned to baseline Follow-up Care/Observations: n/a Post-Anesthesia Complications: none Follow-up care needed: N/A Tenzin Roca MD Apr 22, 2019 13:46
--- NOTE | 2019-04-22 13:57 | General Progress Note ---
Assessment/Plan Assessment/Plan: S: I am doing ok O: seems comfortable, denies any pain PHYSICAL EXAMINATION:HEENT: Atraumatic and normocephalic. CHEST: Clear to auscultation.HEART: S1 and S2. Regular rate and rhythm. ABDOMEN: Soft. No organomegaly.MUSCULOSKELETAL: No gross focal motor deficits. Positive for decreased range of motion in the left hip, Post surgery. LABORATORY DATA: Labs dated 04/21/2019, Reviewed ASSESSMENT AND PLAN: 1. Mechanical fall and fracture of the left hip. S/P ORIF and IT Nail placement 2. Abnormal blood sugar. No evidence of diabetes. 3. GI and DVT prophylaxis. A/P: PO #1 Medically stable Once clear by Ortho, may follow as o/p Subjective Allergies: Coded Allergies: GRAPE (Unverified Allergy, Severe, 04/20/19) Beef (Verified Allergy, Mild, intestinal upset, 04/20/19) MORGAN (Verified Allergy, Mild, intestinal upset, 04/20/19) POULTRY (Verified Allergy, Mild, intestinal upset, 04/20/19) Plums (Verified Allergy, Mild, intestinal upset, 04/20/19) Uncoded Allergies: concourd grape (Adverse Reaction, Severe, Anaphylaxis, 04/20/19) Objective Last 24 Hour Vital Signs Date Time Temp Pulse Resp B/P (MAP) Pulse Ox O2 Delivery O2 Flow Rate FiO2 04/22/19 13:46 72 20 98 04/22/19 11:42 98.0 72 12 109/60 (76) 99 04/22/19 09:33 98.8 04/22/19 09:00 Room Air 04/22/19 08:00 98.8 83 16 113/60 (77) 95 04/22/19 04:00 98.4 71 15 101/56 (71) 96 04/22/19 00:00 98.5 70 15 97/60 (72) 97 04/21/19 21:00 Room Air 04/21/19 20:00 97.9 67 14 103/61 (75) 99 04/21/19 17:45 98.0 66 12 93/61 (72) 100 04/21/19 17:30 97.9 67 17 115/52 100 Nasal Cannula 3 04/21/19 17:15 64 15 115/49 100 Nasal Cannula 3 04/21/19 17:00 66 19 110/50 100 Nasal Cannula 3 04/21/19 16:50 65 14 121/52 100 Nasal Cannula 3 04/21/19 16:42 63 14 107/53 100 Simple Mask 6 04/21/19 16:37 56 16 98/51 100 Simple Mask 6 04/21/19 16:36 68 20 98 04/21/19 16:32 97.0 72 20 104/65 100 Simple Mask 6 Intake and Output 04/21/19 04/22/19 19:00 07:00 Intake Total 1500 ml 625 ml Output Total 1000 ml 700 ml Balance 500 ml -75 ml Intake Oral 550 ml IV Total 1500 ml 75 ml Output Urine Total 900 ml 700 ml Estimated Blood Loss 100 ml Laboratory Tests 04/22/19 05:35: White Blood Count 5.2, Red Blood Count 3.53L, Hemoglobin 10.9L, Hematocrit 31.9L , Mean Corpuscular Volume 90, Mean Corpuscular Hemoglobin 31.0, Mean Corpuscular Hemoglobin Concent 34.3, Red Cell Distribution Width 10.9L, Platelet Count 141L, Mean Platelet Volume 7.9, Neutrophils (%) (Auto) 70.3, Lymphocytes (%) (Auto) 17.6L, Monocytes (%) (Auto) 8.8, Eosinophils (%) (Auto) 2.7, Basophils (%) (Auto) 0.6, Sodium Level 137, Potassium Level 4.0, Chloride Level 103, Carbon Dioxide Level 29, Anion Gap 5, Blood Urea Nitrogen 9, Creatinine 0.7, Estimat Glomerular Filtration Rate > 60, Glucose Level 136H, Calcium Level 8.5 Height (Feet): 5 Height (Inches): 5.00 Weight (Pounds): 118 Erin Padilla MD Apr 22, 2019 13:57
--- NOTE | 2019-04-22 15:44 | NUR ---
NURSE NOTES: PATIENT DOING VERY WELL TODAY. ONLY REQUIRED PAIN MEDICATION PRIOR TO FIRST P.T. SESSION. TOLERATED WELL. UP TO CHAIR FOR MEALS. TOLERATING REGULAR KOSHER DIET.VSS. CALL LIGHT= WITHIN REACH.
[2019-04-22 16:00] VITALS: BP 109/64
--- NOTE | 2019-04-22 17:46 | Diagnostic Imaging Report ---
Indications: Left hip pain Findings: Two views of the left hip were obtained. There is an intratrochanteric fracture of the left hip with varus angulation. Fracture appears acute. Bones are osteopenic. There is a large calcification in the pelvis which is likely a fibroid. Degenerative spondylosis lower lumbar spine noted. IMPRESSION: Acute intertrochanteric fracture of the left hip
--- NOTE | 2019-04-22 17:47 | Diagnostic Imaging Report ---
Indication: Status post left hip repair Technique: One view of the pelvis Comparison: 04/20/2019 Findings: Interim surgical repair of previously demonstrated left hip intertrochanteric fracture with medullary josefina and compression screw. Good anatomic alignment. Retained air from the surgical exposure is seen within the soft tissues. Again demonstrated is a large calcified uterine fibroid. A Meyer catheter is noted Impression: Status post ORIF of the left hip. No features
--- NOTE | 2019-04-22 19:30 | NUR ---
HAND-OFF: Report given to SHAHRZAD OCHOA RN.
--- NOTE | 2019-04-22 19:31 | NUR ---
NURSE NOTES: Received report from POOJA Hall. No distress noted. Left hip dressing dry and intact.
[2019-04-22 20:00] VITALS: BP 94/57
--- NOTE | 2019-04-22 20:13 | NUR ---
NURSE NOTES: Patient sitting in bed, reading. No distress noted. Bed in low position, locked, side rails up x2, call light within reach. Alert oriented x4. Rates pain 2/10. States prefers not to take medications for pain. Encouraged other pain management measures such as music, repositioning, distraction. Meyer catheter patent, clear yellow urine. Patient refused to have catheter removed today, will remove in AM. Tolerating PO well. Will continue to monitor.
--- NOTE | 2019-04-22 22:26 | NUR ---
NURSE NOTES: Patient asleep.
[2019-04-23] VITALS: BP 97/58
[2019-04-23 04:00] VITALS: BP 101/62
--- NOTE | 2019-04-23 06:30 | NUR ---
NURSE NOTES: Meyer catheter discontinued per orders. Pt tolerated well.
[2019-04-23 08:00] VITALS: BP 100/60
--- NOTE | 2019-04-23 08:15 | NUR ---
NURSE NOTES: Received report from Sangeetha PATTON. Patient is awake alert and oriented x4, no acute distress noted. Patient reporting no pain, dressing clean and dry, will change today per order. Patient state she is ready for discharge, walker at bedside. Fall precautions maintained. Side rails upx3, bed low and locked, call light in reach, patient reminded to call for assistance before getting OOB. Will continue to monitor.
[2019-04-23 08:33] LABS: ANION GAP 6 mmol/L (5-15); BLOOD UREA NITROGEN 10 mg/dL (7-18); CALCIUM 8.6 MG/DL (8.5-10.1); CARBON DIOXIDE 29 MMOL/L (21-32); CHLORIDE 106 MMOL/L (98-107); CREATININE 0.5 MG/DL (0.55-1.30); POTASSIUM 3.4 MMOL/L (3.5-5.1); SODIUM 141 MMOL/L (136-145)
[2019-04-23] MEDS: Docusate 100mg cap ORAL SCH ×2 (09:00→13:00)
--- NOTE | 2019-04-23 09:44 | NUR ---
NURSE NOTES: Patient up to bathroom with assist and voided. No difficulty noted with voiding. Will continue to monitor.
[2019-04-23] MEDS: Aspirin Baby 81mg ORAL SCH (09:49)
[2019-04-23] MEDS: celeBREX 200mg Cap **SURGERY PATIENTS ONLY ORAL SCH (09:50)
--- NOTE | 2019-04-23 10:03 | NUR ---
NURSE NOTES: Left hip dressing changed per MD order with 4x4 and tegaderm. Patient tolerated well. No signs of infection noted at surgical site, some dried blood noted but no redness, warmth, discharge, or odor noted.
[2019-04-23 12:00] VITALS: BP 99/53
--- NOTE | 2019-04-23 14:14 | General Progress Note ---
Assessment/Plan Assessment/Plan: S: I am doing ok O: seems comfortable, denies any pain PHYSICAL EXAMINATION:HEENT: Atraumatic and normocephalic. CHEST: Clear to auscultation.HEART: S1 and S2. Regular rate and rhythm. ABDOMEN: Soft. No organomegaly.MUSCULOSKELETAL: No gross focal motor deficits. Positive for decreased range of motion in the left hip, Post surgery. LABORATORY DATA: Labs dated 04/21/2019, Reviewed ASSESSMENT AND PLAN: 1. Mechanical fall and fracture of the left hip. S/P ORIF and IT Nail placement 2. Abnormal blood sugar. No evidence of diabetes. 3. GI and DVT prophylaxis. A/P: PO #2 Medically stable Ok to go home. Fu in office in 1 week Subjective Allergies: Coded Allergies: GRAPE (Unverified Allergy, Severe, 04/20/19) Beef (Verified Allergy, Mild, intestinal upset, 04/20/19) MORGAN (Verified Allergy, Mild, intestinal upset, 04/20/19) POULTRY (Verified Allergy, Mild, intestinal upset, 04/20/19) Plums (Verified Allergy, Mild, intestinal upset, 04/20/19) Uncoded Allergies: concourd grape (Adverse Reaction, Severe, Anaphylaxis, 04/20/19) Objective Last 24 Hour Vital Signs Date Time Temp Pulse Resp B/P (MAP) Pulse Ox O2 Delivery O2 Flow Rate FiO2 04/23/19 12:00 98.0 83 18 99/53 (68) 96 04/23/19 09:00 Room Air Room Air 04/23/19 08:00 99.2 85 19 100/60 (73) 95 04/23/19 04:00 98.4 82 17 101/62 (75) 97 04/23/19 00:00 98.2 80 18 97/58 (71) 97 04/22/19 21:00 Room Air Room Air 04/22/19 20:00 99.6 85 18 94/57 (69) 98 04/22/19 16:00 98.8 81 14 109/64 (79) 97 Intake and Output 04/22/19 04/23/19 19:00 07:00 Intake Total 890 ml 240 ml Output Total 1000 ml 1700 ml Balance -110 ml -1460 ml Intake Oral 480 ml 240 ml IV Total 410 ml Output Urine Total 1000 ml 1700 ml Laboratory Tests 04/23/19 07:27: Sodium Level 141, Potassium Level 3.4L, Chloride Level 106, Carbon Dioxide Level 29, Anion Gap 6, Blood Urea Nitrogen 10, Creatinine 0.5L, Estimat Glomerular Filtration Rate > 60, Glucose Level 108H, Calcium Level 8.6 Height (Feet): 5 Height (Inches): 5.00 Weight (Pounds): 118 Erin Padilla MD Apr 23, 2019 14:14
[2019-04-23] MEDS ORDERED: D5NS 1000ml IV ONE (15:21)
[2019-04-23] MEDS ORDERED: Tubing IV Secondary IV ONE (15:21)
--- NOTE | 2019-04-23 15:26 | NUR ---
NURSE NOTES: Patient discharged. No acute distress on discharge. Patient provided with discharge education and reports understanding of provided teaching. Patient states she has front wheel walker and raised toilet seat at home already. All belongings given to patient. IV removed intact. Patient escorted off unit to private vehicle via wheelchair by RADIOLOGICAL TECHNOLOGIST, accompanied by patient's .
--- NOTE | 2019-04-23 23:59 | Cardiology Progress Note ---
Assessment/Plan Assessment/Plan 1. Mechanical fall and fracture of the left hip. S/P left hip ORIF with no perioperative cardiac events. 2. Abnormal blood sugar. No evidence of diabetes mellitus. 3. Asymptomatic hypotension likely due to effects of pain medication, observation only. Subjective Subjective No cardiac events noticed. Objective Last 24 Hour Vital Signs Date Time Temp Pulse Resp B/P (MAP) Pulse Ox O2 Delivery O2 Flow Rate FiO2 04/23/19 12:00 98.0 83 18 99/53 (68) 96 04/23/19 09:00 Room Air Room Air 04/23/19 08:00 99.2 85 19 100/60 (73) 95 04/23/19 04:00 98.4 82 17 101/62 (75) 97 04/23/19 00:00 98.2 80 18 97/58 (71) 97 Intake and Output 04/22/19 04/23/19 19:00 07:00 Intake Total 890 ml 240 ml Output Total 1000 ml 1700 ml Balance -110 ml -1460 ml Intake Oral 480 ml 240 ml IV Total 410 ml Output Urine Total 1000 ml 1700 ml 2D Echo: LVEF 55%, RVSP 38 mmHg, Grade I LVDD, Mild -Mod AR Laboratory Tests Test 04/23/19 07:27 Sodium Level 141 MMOL/L (136-145) Potassium Level 3.4 MMOL/L (3.5-5.1) L Chloride Level 106 MMOL/L (98-107) Carbon Dioxide Level 29 MMOL/L (21-32) Anion Gap 6 mmol/L (5-15) Blood Urea Nitrogen 10 mg/dL (7-18) Creatinine 0.5 MG/DL (0.55-1.30) L Estimat Glomerular Filtration Rate > 60 mL/min (>60) Glucose Level 108 MG/DL (74-106) H Calcium Level 8.6 MG/DL (8.5-10.1) Objective HEENT: Atraumatic and normocephalic. Anicteric. Pupils are equal, round, and reactive to light and accommodation. Extraocular muscles intact. NECK: JVP less than 5 cm. No carotid bruit. Carotid upstroke is 2+ bilaterally. CARDIOVASCULAR: Normal S1, S2. Regular rate and rhythm. No murmurs, gallops, or rubs. PMI is at fourth intercostal space at the midclavicular line. LUNGS: Clear to auscultation bilaterally. ABDOMEN: Soft, nontender, and nondistended. No hepatosplenomegaly. Positive bowel sounds. EXTREMITIES: Decreased range of motion of left hip. Abnormal gait. No edema, clubbing, or cyanosis. Hima Hollis MD Apr 23, 2019 23:59
--- NOTE | 2019-04-25 21:28 | Discharge Summary ---
Discharge Summary Discharge Summary _ DATE OF ADMISSION: 04/20 DATE OF DISCHARGE: 04/23/2019 DISCHARGED BY: Dr. Padilla REASON FOR ADMISSION: 69 years old female with no significant past medical history, presented after she sustained a mechanical fall. Patient reported pain in the left hip and was unable to ambulate. She denied chest pain or shortness of breath. X-ray of the left hip revealed acute intertrochanteric fracture. Laboratory work-up was unremarkable. Patient subsequently was admitted for surgical intervention CONSULTANTS: manager practice [facility]. [facility] Patient admitted to medical surgical floor. Orthopedic surgery seen and evaluated patient. Cardiology clearance for surgery was requested. Echocardiogram revealed preserved ejection fraction 55% with no evidence of left ventricular hypertrophy. No evidence of wall motion abnormality. Right ventricular systolic pressure of 38 consistent with mild pulmonary hypertension. Mild to moderate aortic regurgitation. F[employer] cleared patient for left hip open reduction and internal fixation surgery with a risk of coronary artery event perioperatively estimated to be less than 1%. Patient had no prior history of coronary artery disease, congestive heart failure or cardiac arrhythmia. Patient subsequently undergone on 04/21 left hip open reduction and internal fixation. Course of recovery was uneventful. Hip precaution maintained. Pain management was addressed. Bowel regimen instituted. DVT and GI prophylaxis provided. Patient was working with physical therapist. Fall precaution maintained. Pain was controlled. Patient ambulated without difficulties. Dressing was changed prior to discharge. Patient was able to tolerate diet. Patient was stable for discharge home with outpatient follow-up with her primary care provider and surgeon. FINAL DIAGNOSES: Acute left hip displaced intertrochanteric fracture ,secondary to mechanical fall Status post open reduction internal fixation of left hip fracture DISCHARGE MEDICATIONS: See Medication Reconciliation list. DISCHARGE INSTRUCTIONS: Patient was discharged home.. Follow up with primary care provider in one week. Follow-up with surgeon in 1 week I have been assigned to dictate discharge summary for this account. I was not involved in the patient's management. Ayesha Sims NP Apr 25, 2019 21:28
--- NOTE | 2019-04-26 14:35 | Cardiology Report ---
APPROVED REPORT EKG Measurement Heart [id number] Normal sinus rhythm Normal ECG
== END 2019-04-23 15:22 | disposition home or self-care (01) | DRG 482 ==
LOC: EMR 18:27 → 3E 19:07 → EDBEDREQ 19:48
PROC: 0QS704Z Reposition Left Upper Femur with Internal Fixation Device, Open Approach (ICD-10-PCS; principal; 2019-04-21 14:45)
DX: S72.142A Displaced intertrochanteric fracture of left femur, initial encounter for closed fracture (principal); W01.0XXA Fall on same level from slipping, tripping and stumbling without subsequent striking against object, initial encounter; Y92.480 Sidewalk as the place of occurrence of the external cause; I27.20 Pulmonary hypertension, unspecified; I35.1 Nonrheumatic aortic (valve) insufficiency; Z91.018 Allergy to other foods
CPT/HCPCS: 36415; 71045; 72170; 73502; 76000; 80048; 80053; 80061; 83036; 83880; 84443; 84484; 85025; 85610; 85730; 86850; 86900; 86901; 93005; 93306; 94003; 94150; 99285; J2250